=== PATIENT | male | born 1980 | race Caucasian/White ===

== ENCOUNTER 2018-11-01 06:12 | Day surgery (SDC) | payer BC, OTHER ==
[~2018-11-01] VITALS: Ht 170.2 cm; Wt 68.1 kg
[2018-11-01] MEDS ORDERED: lorazepam (06:48)
[2018-11-01] MEDS ORDERED: amlodipine (06:48)
[2018-11-01 06:49] VITALS: Ht 170.2 cm; Wt 68.1 kg
[2018-11-01 07:10] VITALS: BP 138/81; PULSE 54; RESP 12
[2018-11-01] MEDS ORDERED: MIDAZOLAM 1 MG/ML 2 ML INJ ONE ×3 (08:56)
[2018-11-01] MEDS ORDERED: FENTAnyl 50 MCG/ML VIAL ONE (08:57)
[2018-11-01] MEDS ORDERED: ATROPINE 1 MG/10 ML SYRINGE ONE (08:58)
[2018-11-01 09:13] VITALS: BP 138/90; PULSE 62; RESP 24
== END 2018-11-01 11:38 | disposition home or self-care (01) ==
LOC: GIL 06:12
PROVIDERS: ATTEND Internal Medicine Gastroenterology
DX: Z83.71 Family history of colonic polyps (principal); K64.4 Residual hemorrhoidal skin tags; D12.3 Benign neoplasm of transverse colon; Z80.0 Family history of malignant neoplasm of digestive organs; D12.8 Benign neoplasm of rectum
CPT/HCPCS: 45380; 88305; J0461; J2250; J3010; Z7610